=== PATIENT | female | born 1975 | race Caucasian/White ===

== ENCOUNTER 2023-12-20 06:48 | Day surgery (SDC) | payer OTHER ==
[~2023-12-20] VITALS: Ht 154.9 cm; Wt 113.4 kg
[2023-12-20] MEDS ORDERED: fentaNYL citrate 0.05 MG/ML VIAL ONE (09:25)
[2023-12-20] MEDS ORDERED: MIDAZOLAM 2 MG/2 ML VIAL ONE (09:25)
[2023-12-20] MEDS: MIDAZOLAM 2 MG/2 ML VIAL IVP ONE (09:48)
[2023-12-20] MEDS: fentaNYL citrate 0.05 MG/ML VIAL IVP ONE (09:49)
[2023-12-20] MEDS: LIDOCAINE 2% 100 MG/5 ML UJET TP ONE (10:11)
== END 2023-12-20 11:40 | disposition home or self-care (01) ==
LOC: MDS 06:48 → MMU 06:50 → MDS 11:40
PROVIDERS: ATTEND Internal Medicine Gastroenterology
DX: R10.84 Generalized abdominal pain (principal); K29.70 Gastritis, unspecified, without bleeding; K63.5 Polyp of colon; K22.0 Achalasia of cardia; K31.89 Other diseases of stomach and duodenum; K21.9 Gastro-esophageal reflux disease without esophagitis; F41.9 Anxiety disorder, unspecified; E66.9 Obesity, unspecified; Z80.3 Family history of malignant neoplasm of breast; Z80.1 Family history of malignant neoplasm of trachea, bronchus and lung; Z98.890 Other specified postprocedural states; Z79.899 Other long term (current) drug therapy; Z90.49 Acquired absence of other specified parts of digestive tract
CPT/HCPCS: 36415; 43239; 45385; 86677; J2250; J3010